=== PATIENT | female | born 1995 | race Caucasian/White ===

== ENCOUNTER 2017-06-22 05:37 | Inpatient (IN) | payer OTHER, SELFPAY ==
--- NOTE | 2017-06-15 04:41 | HPE ---
DATE OF SCHEDULED ADMISSION: 06/22/2017 This lady is booked for elective repeat section and bilateral tubal ligation by Cecilio lloyd 06/22/2017. This lady is a 21-year-old, 3, para 2, whose estimated date of confinement (EDC) is 06/25/2017 by late ultrasound at 18 and 1 weeks' of gestation. Her last menstrual period (LMP) is uncertain. Her past history is that on 12/04/2010 at 37 weeks, had a primary section for a male, 6 pounds 12 ounces, because of decreased heart and nonreassuring heart. She had an elective repeat section on 02/26/2012 at 39 weeks as a scheduled repeat section, 7-pound 8-ounce female. Her lab work indicates she is O positive, HIV negative, hepatitis negative, RPR negative, rubella immune. Varicella by history immune. Pap was normal. Urine had mixed kamron. Gonorrhea and chlamydia are negative. 1-hour glucose was 130. Tdap was given, and group B streptococcus (GBS) is negative. ON EXAMINATION: Today, she does not appear in any acute distress. Symphysis fundus height is 36. Blood pressure is 114/68, respirations are 18, pulse is 78. She is 153.2 pounds. She, today, was having upper respiratory tract infection. Examination of her eyegrounds is normal. Pupils are equal and reactive to light. Chest is clear bilaterally to bases. No pharyngitis or inflammatory effect in the mouth was noted. The rest of the examination is unremarkable. She is normocephalic, atraumatic. Neck full range of motions. The distal pulses are symmetric. No evidence of deep venous thrombosis (DVT), pulmonary embolism (PE), or superficial phlebitis. No wheezes or rhonchi. No costovertebral angle (CVA) tenderness. Gravid uterus. Four quadrant bowel sounds are noted. Appropriate symphysis fundus height. Baby is very active. No rashes, lesions, or pruritus. No arthralgia or myalgia. No complaints of cough, wheeze, but she does have a runny nose. No shortness of breath or dyspnea on exertion. No palpitations or chest pain. Not bleeding. Neurologically complete. No incontinence, urgency, or frequency. No nausea, vomiting, diarrhea, or constipation. No diabetic issues. No thyroid issues. ALLERGIES: She has an allergy to PENICILLIN, but this is when she was a child and this was told to her by her mother but she has never taken penicillin after that. GYNECOLOGIC HISTORY: Is unremarkable. MEDICAL HISTORY: Is noncontributory. FAMILY HISTORY: Is noncontributory. She does not smoke, drink, abuse drugs. She is . There is no domestic violence. We discussed the risks and benefits of repeat section, including hemorrhage, infection, perforation, , reoperation, remote blood transfusion, remote hysterectomy, remote laceration, or intensive care unit (NICU) admission. We discussed the risks and benefits of tubal ligation, including the failure rate in which an intrauterine (IUP) or an ectopic may be entertained. We also talked about post tubal ligation syndrome, chronic menorrhagia, or dysmenorrhea with her periods. After expressing understanding of the procedures, risks, and benefits, signed and witnessed consent form, and patient is booked for 06/22/2017 for repeat section, bilateral tubal ligation by Cecilio lloyd.
[~2017-06-22] VITALS: Ht 157.5 cm; Wt 70.0 kg
[2017-06-22] VITALS (8 sets, daily range): BP systolic 100–123; BP diastolic 60–79
[~2017-06-22 05:37] MED LIST: PREN29TA4 PO
[2017-06-22] MEDS ORDERED: AZITHROMYCIN INJ 500 MG, VIAL MATE ADAPTER 1 EACH in D5W 250 ML IV ONE (06:00)
[2017-06-22] MEDS ORDERED: VANCOMYCIN HCL 1,000 MG, VIAL MATE ADAPTER 1 EACH in D5W 250 ML IV ONE (06:00)
[2017-06-22] MEDS ORDERED: ACETAMINOPHEN 650 MG SUPP PR ONE (06:00)
[2017-06-22] MEDS ORDERED: LR 1,000 ML IV ONE (06:00)
[2017-06-22] MEDS ORDERED: BUPIVACAINE HCL 0.25% 10 ML VIAL XX ONE (06:00)
[2017-06-22] MEDS ORDERED: LR 1,000 ML IV SCH ×2 (06:00→10:15)
[2017-06-22] MEDS ORDERED: BICITRA 30ML SOLN UDC PO ONE (06:00)
[2017-06-22 06:17] LABS: MEAN CORPUSCULAR HEMOGLOBIN 27.7 pg (27.0-33.0); MEAN CORPUSCULAR HGB CONC 33.1 g/dl (32.0-36.5); MEAN CORPUSCULAR VOLUME 83.6 fl (80.0-96.0); PLATELET COUNT, AUTOMATED 306 10^3/uL (150-450); RED CELL DISTRIBUTION WIDTH 14.7 % (11.5-14.5); WHITE BLOOD COUNT 8.9 10^3/uL (4.0-10.0)
[2017-06-22] MEDS ORDERED: NALOXONE INJ 0.4 MG/1 ML VIAL (J2310) IV PRN ×2 (08:37)
[2017-06-22] MEDS ORDERED: NALBUPHINE HCL 10 MG/ML AMP (J2300) IV PRN (08:37)
[2017-06-22] MEDS ORDERED: METOCLOPRAMIDE INJ 10MG/2ML VIAL (J2765) IV PRN (08:37)
[2017-06-22] MEDS ORDERED: ONDANSETRON 4MG/2ML VIAL (J2405) IV PRN ×2 (08:37→10:15)
[2017-06-22] MEDS: PRENATAL VITAMINS CHEWABLE TABLET PO SCH (09:00)
[2017-06-22] MEDS ORDERED: MORPHINE PRES-FREE INJ 10 MG/10 ML VIAL (J2274) As Ordered ONE (09:12)
[2017-06-22] MEDS ORDERED: ONDANSETRON 4MG/2ML VIAL (J2405) As Ordered ONE (09:12)
[2017-06-22] MEDS ORDERED: PHENYLephrine HCL 500 MCG/5 ML (100MCG/ML) SYRINGE (J2370) As Ordered ONE (09:12)
[2017-06-22] MEDS ORDERED: KETOROLAC 60 MG/2 ML VIAL (J1885) As Ordered ONE (09:12)
[2017-06-22] MEDS ORDERED: OXYTOCIN INJ 10 UNITS/ML VIAL (J2590) As Ordered ONE (09:12)
[2017-06-22 09:22] LABS: CORD GAS ABE V -8.7; CORD GAS HCO3 V 17.8 MEQ/L; CORD GAS O2 SAT V 80.8 %; CORD GAS PCO2 V 40.1 mmHg; CORD GAS PH V 7.264 UNITS; CORD GAS PO2 V 41.4 mmHg; CORD GAS SBC V 17.3 MEQ/L
[2017-06-22 09:24] LABS: CORD GAS ABE A -6.9; CORD GAS O2 SAT A 33.5 %; CORD GAS PCO2 A 74.1 mmHg; CORD GAS PH A 7.129 UNITS; CORD GAS PO2 A 20.8 mmHg; CORD GAS SBC A 17.5 MEQ/L; CORD GAS TCO2 A 26.3 MEQ/L
[2017-06-22] MEDS ORDERED: OXYTOCIN DRIP 30 UNITS in APPROPRIATE DILUENT 1 EA IV SCH (09:48)
[2017-06-22] MEDS ORDERED: ANUSOL HC CREAM 30GM TOP PRN (10:00)
[2017-06-22] MEDS ORDERED: METHYLERGONOVINE MALEATE 0.2 MG TAB PO PRN (10:00)
[2017-06-22] MEDS ORDERED: DOCUSATE SODIUM 100 MG CAP PO PRN (10:00)
[2017-06-22] MEDS ORDERED: OXYTOCIN INJ 10 UNITS/ML VIAL (J2590) IV ONE (10:00)
[2017-06-22] MEDS ORDERED: MEASLES,MUMPS,RUBELLA VACCINE INJ (MMR-II) (90707) SC SCH (10:00)
[2017-06-22] MEDS ORDERED: PERCOCET 5MG/325MG TAB PO PRN (10:00)
[2017-06-22] MEDS ORDERED: RHOGAM 300 MCG (1500 IU) INJ (J2790) IM SCH (10:00)
[2017-06-22] MEDS ORDERED: MOM 30ML SUSPENSION UDC PO PRN (10:00)
[2017-06-22] MEDS ORDERED: fentaNYL 100 MCG/2 ML INJECTION (J3010) IV PRN (10:15)
[2017-06-22] MEDS: IBUPROFEN 800 MG TAB PO SCH (16:50)
[2017-06-23] VITALS (8 sets, daily range): BP systolic 113–127; BP diastolic 59–71
[2017-06-23] MEDS: IBUPROFEN 800 MG TAB PO SCH ×3 (01:19→18:06)
[2017-06-23 07:05] LABS: MEAN CORPUSCULAR HEMOGLOBIN 27.4 pg (27.0-33.0); MEAN CORPUSCULAR HGB CONC 31.8 g/dl (32.0-36.5); MEAN CORPUSCULAR VOLUME 86.1 fl (80.0-96.0); PLATELET COUNT, AUTOMATED 306 10^3/uL (150-450); RED CELL DISTRIBUTION WIDTH 14.9 % (11.5-14.5); WHITE BLOOD COUNT 10.3 10^3/uL (4.0-10.0)
[2017-06-23] MEDS: PRENATAL VITAMINS CHEWABLE TABLET PO SCH (09:11)
[2017-06-23] MEDS: PERCOCET 5MG/325MG TAB PO PRN ×2 (09:12→15:46)
--- NOTE | 2017-06-23 09:49 | IPN ---
DATE: 06/23/2017 This lady is a 21-year-old, 3 now para 3, who had a repeat section, bilateral tubal ligation by Filshie clip, delivered a live female infant 6 pounds 10 ounces, 3120 grams, scores of 8 and 9 at 1 and 5 minutes, respectively. Arterial pH was 7.12, base excess -6.9, venous pH 7.26, base excess -8.7. Her admitting hemoglobin was 10.8, hematocrit 32.6 and platelets were 306. day #1 hemoglobin 11.0, hematocrit 34.6 and platelets were 306. Her vital signs this morning: Her blood pressure 115/71, respirations 16, pulse 64, temperature 99.2. We discussed phlebitis, cystitis, mastitis, endometritis, cellulitis, diet, exercise, pain management, perineal, breast and wound care. On examination today, she is normocephalic, atraumatic. Full range of motion. Pupils equal and reactive to light. She is moving around the room. She has voided, passed gas and is planning on having a bowel movement today. Distal pulses symmetric. No evidence of DVT, PE or superficial phlebitis. Chest is clear bilaterally to bases. No wheezes or rhonchi. No CVA tenderness. Four quadrant bowel sounds are noted. Incision is clean and dry. She has no rashes, lesions or pruritus. No arthralgia or myalgia. No complaints of cough, wheeze, shortness of breath or dyspnea on exertion. No chest pain. Not bleeding. Neuro complete. No incontinence, urgency, or frequency. No nausea, vomiting, diarrhea or constipation. No diabetic issues. She is planning on discharge tomorrow morning with medications. All questions were answered today. She has a 2-week incision check and a 6-week check.
[2017-06-23] MEDS ORDERED: diphenhydrAMINE 50 MG CAP PO PRN (22:30)
[2017-06-24] MEDS: IBUPROFEN 800 MG TAB PO SCH ×2 (01:15→10:08)
[2017-06-24 06:04] VITALS: BP 115/64
[2017-06-24] MEDS ORDERED: INFLUENZA QUADRIVALENT PF VACCINE 0.5ML SYRINGE (90686) IM ONE (09:00)
[2017-06-24] MEDS: PRENATAL VITAMINS CHEWABLE TABLET PO SCH (10:08)
--- NOTE | 2017-06-24 22:30 | DSES ---
DATE OF ADMISSION: 06/22/2017 DATE OF DISCHARGE: 06/24/2017 This lady is a 21-year-old 3, now para 3. Had a repeat section and bilateral tubal ligation by Filshie clip. Delivered a female, , 3120 grams, scores of 8 and 9 at one and five minutes, respectively. Arterial pH was 7.12, base excess -6.9, venous pH 7.26, base excess -8.7. Her admitting hemoglobin 10.8, hematocrit 32.6, and platelets were 306. Discharge hemoglobin 11.0, hematocrit 34.6, and platelets are 306. On discharge today her blood pressure is 115/64, respirations 18, pulse 83, and temperature is 98.5. We discussed phlebitis, cystitis, mastitis, metritis, cellulitis, diet, excise, pain management, perineal, breast, and wound care. She was given her medications upon discharge. She had some itching overnight, which was alleviated by Benadryl, probably related to narcotic. Otherwise she is normocephalic, atraumatic. Neck full range of motion. Pupils equal and reactive to light. Distal pulses symmetric. No evidence of deep vein thrombosis (DVT), pulmonary embolism (PE), or superficial phlebitis. Chest is clear bilaterally to bases. No wheezes or rhonchi. No costovertebral angle (CVA) tenderness. Abdomen is soft. Uterus 2 below. Lochia is moderate. Four- quadrant bowel sounds are noted. Incision is clean and dry. No rashes, lesions, or pruritus. No arthralgia or myalgia. No complaints of cough, wheezes, shortness of breath, or dyspnea on exertion. No chest pain. Not bleeding. Neurologic complete. No incontinence, urgency, or frequency. No nausea, vomiting, diarrhea or constipation. No diabetic issues. No [employer] issues. PAST MEDICAL AND SURGICAL HISTORY: Unremarkable. She has had a previous section. FAMILY HISTORY: Noncontributory. She does not smoke, drink, abuse drugs. She is . There is no domestic violence. In summary we have a term gestation, elective repeat section, and bilateral tubal ligation by Filshie clip. Discharged to followup in the office for 2-week incision check and 6 weeks for a check. The patient's questions were all answered, and she was discharged in stable condition. BLAINE
--- NOTE | 2017-06-28 17:02 | RO ---
DATE OF PROCEDURE: 06/22/2017 PREOPERATIVE DIAGNOSIS: Repeat section, satisfied parity. POSTOPERATIVE DIAGNOSIS: Repeat section, satisfied parity. OPERATION PROPOSED: Repeat section, bilateral tubal ligation by Filshie clip. OPERATION PERFORMED: Repeat section, bilateral tubal ligation by Filshie clip. SURGEON: Dr. Shlomo Quiroga ECHOCARDIOLOGIST: Dr. Basil Reaves ANESTHESIA: Spinal plus local anesthetic for intraperitoneal procedures. ESTIMATED BLOOD LOSS: 350 mL. DESCRIPTION OF PROCEDURE: After adequate time-out, prepped and draped in the supine position, Cabrera catheter in the bladder draining clear urine, acetaminophen suppository 1300 mg per rectum, sequentials on board, adequate and appropriate antibiotic treatment 1 hour preop, a Pfannenstiel was made through the previous incisional site passing through abdominal layers securing hemostasis. Opening peritoneal cavity, the bladder was reflected well anteriorly, low transverse incision was made into the uterus. Artificial rupture of membranes (AROM) draining clear liquor. We delivered a live female infant with cord times one loose. scores of 8 and 9 at one and five minutes respectfully. Weight was 3120 grams, 6 pounds 14 ounces. Arterial and venous pH were performed. The placenta was manually removed. Three-vessel cord, membranes and tissues intact. The uterine cavity was swept out. The lower segment was then oversewn in the usual fashion with two layers, the first layer continuous, second layer was imbricated. Reperitonealization was performed with instrument and pad counts correct. Both tubes were visualized at fimbriated end. We requested from the patient acknowledgment of satisfied parity, and bilateral tubal ligation by Filshie clip was performed. With instrument and pad count correct, we lavaged out the abdomen. We then closed the abdomen with a running stitch for the peritoneum, same for the fascia, interrupted for subcu, Dexon to the skin with Marcaine 0.25%, 10 mL and Telfa, and the patient was sent to recovery in good condition. Copy To: Nanci Austin OB
== END 2017-06-24 12:25 | disposition home or self-care (01) | DRG 766 ==
LOC: M LDI 05:37 → M OBS 11:37
PROVIDERS: ADMIT Obstetrics & Gynecology; ATTEND Obstetrics & Gynecology
PROC: 0UL70DZ Occlusion of Bilateral Fallopian Tubes with Intraluminal Device, Open Approach (ICD-10-PCS; 2017-06-22)
PROC: 10D00Z1 Extraction of Products of Conception, Low, Open Approach (ICD-10-PCS; principal; 2017-06-22 07:30)
DX: O34.211 Maternal care for low transverse scar from previous cesarean delivery (principal); Z3A.39 39 weeks gestation of pregnancy; O69.81X0 Labor and delivery complicated by cord around neck, without compression, not applicable or unspecified; Z37.0 Single live birth